=== PATIENT | female | born 1965 | race Caucasian/White ===

== ENCOUNTER 2016-09-25 22:10 | Inpatient (IN) ==
[2016-09-25 22:38] LABS: MANUAL DIFF NEEDED? NO
[2016-09-25 22:41] LABS: BASO% 0.3 % (0.0-0.8); EOS# 0.13 X1000 (0.0-0.7); EOS% 2.2 % (0.0-10.0); HEMATOCRIT 35.7 % (37.0-47.0); HEMOGLOBIN 11.3 g/dL (12.0-16.0); LYMPH# 1.14 X1000 (1.2-3.4); LYMPH% 19.1 % (20.5-51.1); MCHC 31.7 g/dL (33-37); MCV 101.1 FL (81-99); MPV 10.7 FL (7.4-10.4); NEUT% 68.4 % (42.2-75.2); PLT 113 X1000 (130-400); RBC 3.53 XMIL (4.2-5.4)
[2016-09-25 22:54] LABS: AGAP 11; ALBUMIN 3.1 g/dL (3.5-5.0); ALKALINE PHOSPHATASE 111 U/L (32-104); BUN 16 mg/dL (8-22); CALCIUM 7.8 mg/dL (8.8-10.2); CHLORIDE 107 mmol/L (98-107); COSMO 285; GOT 42 U/L (10-30); GPT 61 U/L (10-36); POTASSIUM 3.7 mmol/L (3.5-5.1); SODIUM 142 mmol/L (136-145); TCO2 24 mmol/L (25-35); TOTAL BILIRUBIN 0.33 mg/dL (0.20-1.00); TOTAL PROTEIN 5.4 g/dL (6.3-8.3)
--- NOTE | 2016-09-25 23:35 | ED EKG INTERP ---
This chart was entered by Shell Paredes Scribe, acting as scribe for Earnest Oviedo MD. EKG Interpretation - EKG Time of EKG reading by physician:: 22:28 EKG Read and Signed by:: Earnest Oviedo EKG Interpretation (*Must complete 3 of following elements*): Normal Rate: 55 Rhythm: Sinus Bradycardia Comments: Otherwise Normal ECG This chart was documented by the indicated scribe, (Shell Paredes Scribe) and accurately reflects the services I performed and decisions made by me, Earnest Oviedo MD, as attested by the provider's signature.
[2016-09-26 01:46] LABS: IRON SATURATION 12 %; TIBC 194 ug/dL; TOTAL IRON 24 ug/dL (49-151); UNBOUND IRON 170 ug/dL (112-346)
[2016-09-26] MEDS ORDERED: NS 1,000 ML IV ONE (02:04)
--- NOTE | 2016-09-26 03:02 | PROVIDER DOCUMENTATION ---
This chart was entered by Shell Paredes Scribe, acting as scribe for Earnest Oviedo MD. HPI-Syncope/Dizziness - General Chief Complaint: Syncope Stated Complaint: WEAKNESS Time Seen by Provider: 09/25/16 23:34 Source: patient Allergies/Adverse Reactions: Patient Allergies Allergy/AdvReac Type Severity Reaction Status Date / Time No Known Allergies Allergy Verified 09/25/16 22:44 Home Medications: Home Medication List Medication Instructions Recorded Confirmed Last Taken Type Multivitamin [Multi-Vitamin Daily] 1 each PO DAILY 11/09/12 09/25/16 09/25/16 09 :00 History Trazodone [Desyrel] 150 mg PO QHS 10/26/13 09/25/16 01/16/16 20:00 History Alprazolam [Xanax] 1 mg PO BID 04/27/14 09/25/16 01/17/16 08:00 History Escitalopram Oxalate [Lexapro] 20 mg PO DAILY 06/22/14 09/25/16 09/25/16 09:00 History Cyclobenzaprine [Flexeril] 10 mg PO DAILY 08/10/15 09/25/16 01/16/16 20:00 History Hydrocodone/Acetaminophen [[place] 1 each PO Q6H PRN PRN 08/10/15 09/25/16 08:00 History 10-325 Tablet] Montelukast Sodium [Singulair] 10 mg PO DAILY 08/10/15 09/25/16 09/25/16 09:00 History Vits A,C,E/Lutein/Minerals 1 each PO DAILY 08/10/15 09/25/16 09/25/16 09:00 History [Ocuvite with Lutein Tablet] Topiramate [Topamax] 100 mg PO DAILY 01/17/16 09/25/16 09/25/16 09:00 History - History of Present Illness-Syncope/Dizzy Nature of Presenting Problem: 50 Y/O F presents to ED with Syncope. Pt states that she fell 3times today off of laundry room table.pt states sitting on a table in laundry room attempting to get off and fell off. Pt states next door neighbor found her passed out on the laundry room. Pt c/o of leaning to the left. Denies N/V hx of stroke. Pt was given a 1L of fluid en route to ED. Prior Episodes: reports: no prior history Onset/Duration: reports: this evening Timing: reports: still present Position/Activity at time of episode: reports: standing Symptoms prior to episode: reports: none Context: reports: other (back pain and leaning to left) Current Symptoms: denies: sweaty, nausea, vomiting Recently Seen Here or By Another Healthcare Provider: No Review of Systems - Adult - REVIEW OF SYSTEMS - ADULT Constitutional: denies: chills, fever Eyes: reports: no symptoms reported Ears, Nose, Mouth & Throat: reports: no symptoms reported Cardiovascular: reports: no symptoms reported Respiratory: reports: no symptoms reported Gastrointestinal: denies: abdominal pain, diarrhea, nausea, vomiting Genitourinary: reports: no symptoms reported Musculoskeletal: reports: back pain. denies: joint pain, joint swelling Integumentary: reports: no symptoms reported Neurological: reports: loss of balance, syncope. denies: dizziness/vertigo, headache/migraines Psychiatric: reports: no symptoms reported Endocrine: reports: no symptoms reported Hematologic/Lymphatic: reports: no symptoms reported Allergic/Immunologic: reports: no symptoms reported All Other Systems: Reviewed and Negative Past History - Adult - PAST MEDICAL HISTORY-ADULT Review of Records: reports: Old Records Reviewed, Nursing Assessment Review, Medications Reviewed, Social history reviewed & non-contributory. 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/"I always have abn cardiac enzymes.") - PRIOR SURGERIES/PROCEDURES Surgical/Procedure History: reports: appendectomy, cholecystectomy, hysterectomy , , tonsillectomy, hernia repair, bowel surgery (gastric bypass), other (gastric bypass, mastectomy,toe nail removal, scar tissue removed) - IMMUNIZATION STATUS Childhood Immunizations: See Nurse Assessment Flu Vaccine: See Nurse Assessment - FAMILY HISTORY Family History: reviewed, not pertinent Physical Exam-General - CONSTITUTIONAL General Appearance: alert, no apparent distress - EYES Eyes: PERRL/EOMI, pink conjunctivae - HEAD, EARS, NOSE, MOUTH & THROAT HENMT: normal ENT inspection, TMs normal, pharynx normal - NECK Neck: full range of motion, supple, normal inspection - RESPIRATORY Respiratory: lungs clear, normal breath sounds - CARDIOVASCULAR Cardiovascular: regular rate, rhythm - GASTROINTESTINAL (ABDOMEN) Abdominal Exam: non tender, soft - LYMPHATIC Lymphatic: no adenopathy - MUSCULOSKELETAL Back Exam: normal inspection, other (bruising noted from fall) Extremity: normal range of motion - SKIN Integumentary: normal color - NEUROLOGIC Neurologic: no motor/sensory deficits, positive romberg's sign. negative: facial droop, focal weakness, sensory deficit - PSYCHIATRIC Psych/Mental Status: normal mood/affect, normal thought content, normal thought process, oriented x 3 Progress - PLAN OF CARE/RESULTS Progress/Plan/Lab Results: Vital Signs - 8 hr 09/25/16 22:19 09/25/16 23:00 09/26/16 00:00 Temperature 98.9 F Pulse Rate 60 54 L 59 L Respiratory Rate 18 13 13 Blood Pressure 108/73 109/75 110/75 O2 Sat by Pulse Oximetry 100 97 97 09/26/16 02:10 Temperature Pulse Rate 58 L Respiratory Rate 10 L Blood Pressure 103/71 O2 Sat by Pulse Oximetry 96 Laboratory Results - last 24 hr 09/25/16 09/25/16 09/25/16 22:30 22:30 22:38 WBC 5.98 RBC 3.53 L Hgb 11.3 L Hct 35.7 L MCV 101.1 H MCH 32.0 H MCHC 31.7 L RDW Std Deviation 13.0 Plt Count 113 L MPV 10.7 H Immature Gran % (Auto) 0.0 Neut % (Auto) 68.4 Lymph % (Auto) 19.1 L Clinch % (Auto) 10.0 H Eos % (Auto) 2.2 Baso % (Auto) 0.3 Immature Gran # (Auto) 0.00 Neut # (Auto) 4.09 Lymph # (Auto) 1.14 L Clinch # (Auto) 0.60 H Eos # (Auto) 0.13 Baso # (Auto) 0.02 Sodium 142 Potassium 3.7 Chloride 107 Carbon Dioxide 24 L Anion Gap 11 BUN 16 Creatinine 0.8 Estimated GFR/1.73 m2 > 60 BUN/Creatinine Ratio 20 Glucose 109 H POC Glucose 101 Calculated Osmolality 285 Calcium 7.8 L Iron TIBC % Saturation Unsat Iron Binding Total Bilirubin 0.33 AST 42 H ALT 61 H Alkaline Phosphatase 111 H Total Protein 5.4 L Albumin 3.1 L Globulin 2.3 Albumin/Globulin Ratio 1.3 Vitamin B12 09/25/16 09/25/16 23:35 23:35 WBC RBC Hgb Hct MCV MCH MCHC RDW Std Deviation Plt Count MPV Immature Gran % (Auto) Neut % (Auto) Lymph % (Auto) Clinch % (Auto) Eos % (Auto) Baso % (Auto) Immature Gran # (Auto) Neut # (Auto) Lymph # (Auto) Clinch # (Auto) Eos # (Auto) Baso # (Auto) Sodium Potassium Chloride Carbon Dioxide Anion Gap BUN Creatinine Estimated GFR/1.73 m2 BUN/Creatinine Ratio Glucose POC Glucose Calculated Osmolality Calcium Iron 24 L TIBC 194 % Saturation 12 Unsat Iron Binding 170 Total Bilirubin AST ALT Alkaline Phosphatase Total Protein Albumin Globulin Albumin/Globulin Ratio Vitamin B12 572 Orders Category Date Time Status HEAD W/O CONTRAST [CT] Stat Exams 09/26/16 00:54 Taken CBC WITH ELECTRONIC DIFF [HEME] Stat Lab 09/25/16 22:30 Completed CMP [COMPREHENSIVE METABOLIC PANEL] [CHEM] Stat Lab 09/25/16 22:30 Completed FOLATE Stat Lab 09/26/16 01:12 Received UIBC W TOTAL IRON [CHEM] Stat Lab 09/26/16 01:12 Completed VITAMIN B12 Stat Lab 09/26/16 01:12 Completed 0.9% Sodium Chloride Inj [Ns] 1,000 ml Med 09/26/16 02:04 Active IV 999 mls/hr EKG [EKG] Stat Ther 09/25/16 22:21 Ordered Result Diagrams: 09/25/16 22:30 09/25/16 22:30 - CT/MRI 1 CT Study: Head Impression: Normal CT Results: No acute hemorrhage or definite acute infract - CONSULTS/PCP/HOSPITALIST Notification #1 *Consult/PCP/Hospitalist*: Time Discussed: 02:47 Reason/Comments: Admit Consult Disposition: Admit (Admit Accepted) Departure - Departure Date of Disposition Decision: 09/26/16 Time of Disposition Decision: 02:49 DIAGNOSIS: CVA (cerebral vascular accident) Qualifiers: CVA mechanism: unspecified Qualified Code(s): I63.9 - Cerebral infarction, unspecified Disposition: ADMITTED INPATIENT 09 Certified Medical Emergency: Emergent Condition: Stable Additional Freetext Instructions: ED Follow Up Instructions: You have been treated by a care provider in the Emergency Department. These instructions are being provided to you so you can have an understanding of how to care for yourself upon discharge. Upon discharge from the Emergency Department, you are responsible for making arrangements for follow-up care by a physician of your choice. Take all prescribed medications as directed. Return to the Emergency Department immediately for any new or worsening symptoms. You may call the Physician Referral phone number at [phone] to obtain a list of Physicians who are taking new patients. Referrals and Follow-Ups: Neena Duenas CRNP [Primary Care Provider] - - Critical Care Note This patient required my direct & personal management of CC.: No This chart was documented by the indicated scribe, (Shell Paredes Scribe) and accurately reflects the services I performed and decisions made by me, Earnest Oviedo MD, as attested by the provider's signature.
--- NOTE | 2016-09-26 05:28 | EKG Report ---
Test Performed on : 09/25/2016 10:28:31 PM Test Reason : syncope Blood Pressure : / mmHG Vent. Rate : 055 BPM Atrial Rate : 055 BPM P-R Int : 126 ms QRS Dur : 074 ms QT Int : 410 ms P-R-T Axes : 064 048 069 degrees QTc Int : 392 ms Sinus bradycardia. Otherwise normal ECG When compared with ECG of 28-OCT-2013 06:51, premature ventricular complexes. are no longer present Unconfirmed Result
[2016-09-26] MEDS ORDERED: ZOFRAN IV PRN (05:42)
--- NOTE | 2016-09-26 05:48 | HISTORY AND PHYSICAL ---
CHIEF COMPLAINT: Fall, syncopal episode, subjective lean to the left. PRIMARY CARE PROVIDER: KERRY Hanson. HISTORY OF PRESENT ILLNESS: This is a 50-year-old female who was last admitted to our service on 10/26/2013 for the same complaint. She has a past medical history of hypertension, and has since been taken off of all of her antihypertensives, and was noted to be hypotensive to normotensive in the emergency room after fluid bolusing. She was also noted to be bradycardic. 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 However, she did state today that she only ate a banana and had water and 1 Mountain Dew. She was apparently at the laundromat, sitting on the laundromat table, and attempted to get off, stated that she could not, and then woke up on the floor after having loss of consciousness. She did hit the back of her head. A CT scan of the brain was obtained in the emergency room. Noted mild atrophy. No definite infarct. I note a small collection fat. She has a known lipoma. The patient also has chronic back pain and is on multiple medications that could cause sedation, such as trazodone, [place], Flexeril, and Xanax, which will be held for the night. She is also on Lexapro and Topamax. She will be admitted in observation status to the floor for further evaluation and treatment. REVIEW OF SYSTEMS: Fourteen point review of systems conducted with the patient. Pertinent positives listed above in the HPI. All other systems reviewed and found to be negative. PAST MEDICAL HISTORY: 1. Hypertension, now hypotensive to normotensive. 2. Spondylolisthesis. 3. 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 4. Elevated cardiac enzymes in 2011, and underwent a cardiac catheterization that was normal at [facility]. PREVIOUS SURGICAL HISTORY: 1. Tonsillectomy. 2. Cholecystectomy. 3. Appendectomy. 4. Hernia repair. 5. Hysterectomy. 6. Gastric bypass and scar tissue removal of the abdomen. 7. Bladder stent. FAMILY HISTORY: Patient is adopted, does not know her family. SOCIAL HISTORY: Lives alone. Denies tobacco, alcohol, or illicit drug use or abuse. HOME MEDICATIONS: 1. Multivitamin 1 p.o. daily. 2. Trazodone 50 mg p.o. at bedtime. 3. Xanax 1 mg p.o. b.i.d. 4. Lexapro 20 mg p.o. daily. 5. Singular 10 mg p.o. daily. 6. Flexeril 10 mg p.o. daily. 7. [place] 10 one p.o. q.6 p.r.n. 8. Ocuvite with lutein tablet 1 p.o. daily. 9. Topamax 100 mg p.o. daily. PHYSICAL EXAMINATION: VITAL SIGNS: Temperature 98.9 degrees, pulse 58, respirations 10, blood pressure will 103/71, oxygen saturation 96%. On the ambulance charting, she was noted to have a blood pressure of 89/63. GENERAL: A very frail 50-year-old female, lying in the ER stretcher. She is awake, alert, oriented. Answers all questions appropriately, in no acute distress. HEENT: Head is atraumatic, normocephalic. Pupils equal, round, reactive to light. Extraocular eye movement intact. Sclerae is anicteric. Conjunctivae is pink. Oral mucosa is moist. Poor dentition is noted. NECK: Supple. Trachea is midline. No JVD. CARDIAC: S1-S2 appreciated. Regular rhythm. Sinus bradycardia. No murmurs, gallops, rubs. LUNGS: Clear to auscultation bilaterally. No rhonchi, wheezes, or rales. Symmetrical rise and fall with respirations. ABDOMEN: Soft, nondistended, nontender. Bowel sounds present in all 4 quadrants. Normoactive. No pulsatile mass. No organomegaly. EXTREMITIES: No clubbing, cyanosis, or edema. 1+ pedal pulses. NEUROLOGICAL: Alert and oriented x3. Cranial nerves 2-12 grossly intact. No focal or motor deficits noted. No palmar drift. No facial asymmetry. GENITOURINARY: Patient voids, otherwise deferred. DIAGNOSTIC DATA: CT of the head: No acute intracranial process. LABORATORY DATA: WBC 5.98, hemoglobin 11.3, hematocrit 58.7, platelet count 113,000. Sodium 124, potassium 3.4, chloride 107, carbon dioxide 24, BUN 16, creatinine 0.8, glucose 109. ASSESSMENT AND PLAN: 1. Syncope. This appears to be possibly multifactorial. The patient was hypotensive. She stated she had only ate a banana today. She has had very minimal fluid intake. She was bradycardic. She is on multiple medications that could cause sedation, especially without food. Will order an MRI in a.m. to rule out cerebrovascular accident. Orthostatic vital signs are pending. Normal saline bolus was given in the emergency room. We will continue normal saline. Also, a urine drug screen has not been obtained. We will also get a urinalysis, as urinary tract infections can cause altered mentation. 2. Hypotension. As noted above, fluid bolusing was given. Will continue. Will hold pain medications and benzodiazepines, as well as her Flexeril. 3. Sinus bradycardia. Telemetry has been ordered. We will monitor. 4. Elevated liver function tests. A CT scan of her abdomen was obtained earlier this year, which showed stable intrahepatic and extrahepatic biliary dilation, status post cholecystectomy. This is possibly the cause of her elevated liver function tests. 5. Anemia. We will check iron studies. 6. Further recommendations per patient clinical course. Dictated by KERRY Menendez for Marcelino Todd MD cc: KERRY Menendez MD Anna M. Dumas, CRNP
[2016-09-26] MEDS: NS 1,000 ML IV SCH ×3 (06:11→23:53)
[2016-09-26 06:32] LABS: URINE MICRO REVIEW NEEDED? NO; URINE SOURCE CLEAN CATCH
[2016-09-26 06:39] LABS: BILIRUBIN URINE NEGATIVE (NEGATIVE); BLOOD URINE NEGATIVE (NEGATIVE); COLOR YELLOW; GLUCOSE URINE NEGATIVE (NEGATIVE); LEUKOCYTES URINE SMALL (NEGATIVE); NITRITE URINE NEGATIVE (NEGATIVE); PROTEIN URINE TRACE mg/dL (NEGATIVE); SP GRAVITY URINE 1.023; TURBIDITY URINE CLEAR (CLEAR); UROBILINOGEN URINE 2 mg/dL (NORMAL)
[2016-09-26 06:41] LABS: UR EPITHELIAL CELLS <10 /HPF (<10); URINE BACTERIA NEGATIVE /HPF; URINE CULTURE NEEDED? YES; URINE RBC <10 /HPF (<10)
[2016-09-26 07:01] LABS: UR AMPHETAMINES QUAL PRESUMPTIVE POSITIVE (NONE DETECT); UR BARBITUATES QUAL NONE DETECTED (NONE DETECT); UR BENZODIAZEPIN QUAL PRESUMPTIVE POSITIVE (NONE DETECT); UR CANNABINOIDS QUAL NONE DETECTED (NONE DETECT); UR COCAINE QUAL NONE DETECTED (NONE DETECT); UR METHADONE QUAL NONE DETECTED (NONE DETECT); UR OPIATES QUAL NONE DETECTED (NONE DETECT); UR OXYCODONE QUAL PRESUMPTIVE POSITIVE (NONE DETECT); UR PCP QUAL NONE DETECTED (NONE DETECT)
--- NOTE | 2016-09-26 07:57 | Diag Imaging Result Doc PS360 ---
EXAM: HEAD W/O CONTRAST - 09/26/2016 HISTORY: cva? TECHNIQUE: Dose reduction protocol COMPARISON: 07/15/2010 FINDINGS: There are mild atrophic changes. There is no evidence of intracranial hemorrhage, mass effect, midline shift, or hydrocephalus. There is no evidence of infarct, although acute infarcts may not be immediately visible. There is no skull fracture. There is a small fat density structure superior to the third ventricle which is stable and is of questionable clinical significance. IMPRESSION: No visible acute intracranial abnormality. The construction driver radiologist provided primary results at 1:43 AM on 09/26/2016. Electronically signed by Collins Martinez 09/26/2016 7:55 AM
--- NOTE | 2016-09-26 10:49 | Diag Imaging Result Doc PS360 ---
EXAM: HIP W/PELVIS BILAT 2 VIEWS HISTORY: hip pain with fall TECHNIQUE: Three views COMPARISON: None. FINDINGS: Neither hip is dislocated. No fracture to either hip. The pubic symphysis is not widened. No fracture to the pelvis. IMPRESSION: No acute bony injury. Electronically signed by Erik Priest 09/26/2016 10:47 AM
--- NOTE | 2016-09-26 11:07 | PROGRESS NOTE ---
DATE: 09/26/2016 SUBJECTIVE: The patient is complaining of having hip pain. She is complaining of having pain all over. She was admitted for falling at home. The patient was seen and examined. PHYSICAL EXAMINATION: Vital Signs: Blood pressure 86/55, pulse of 62, respirations 14, temperature of 98.4 degrees, pulse of 68. General Appearance: Thin, white female in moderate distress. HEENT: Anicteric sclerae. Clear conjunctivae. Neck: Supple. No JVD. No bruit. Cardiovascular: S1 and S2. Normal rate and rhythm. No murmur, rubs, or gallops. Pulmonary: Clear to auscultation bilaterally. GI: Soft, nontender, nondistended. Normoactive bowel sounds. Musculoskeletal: No clubbing, cyanosis, or edema. LABORATORY: White count 5.98, hemoglobin 11.3, hematocrit 35.7, platelets of 113,000. Chemistry: Sodium 142, potassium 3.7, chloride 107, bicarb 24, BUN 16, creatinine 0.8, glucose of 109. ASSESSMENT AND PLAN: A 50-year-old admitted to the hospital for syncope. 1. Syncope and passed out. CAT scan was negative for any acute process. MRI is pending. We will get a Doppler of the carotid arteries. We will get an echocardiogram. Her blood pressures have been running low. We will start the patient on intravenous fluid. We will get the x-ray of her hip. We will back off on her muscle relaxant. 2. Deep vein thrombosis prophylaxis. Put the patient on Lovenox.
[2016-09-26] MEDS: THERA M PLUS PO SCH (11:47)
[2016-09-26] MEDS: OCUVITE LUTEIN & ZEAXANTHIN PO SCH (11:47)
[2016-09-26] MEDS: LEXAPRO PO SCH (11:48)
[2016-09-26] MEDS: TOPAMAX PO SCH (11:48)
[2016-09-26] MEDS: SINGULAIR PO SCH (11:48)
[2016-09-26] MEDS ORDERED: DILAUDID IV PRN (11:55)
[2016-09-26] MEDS: NORCO-10 PO PRN ×2 (12:02→17:37)
--- NOTE | 2016-09-26 12:26 | Diag Imaging Result Doc PS360 ---
EXAM: MRI BRAIN W W/O CONTRAST - 09/26/2016 HISTORY: syncope TECHNIQUE: Images are obtained prior to and following Omniscan administration. COMPARISON: CT head from earlier the same day (09/26/2016) FINDINGS: There are mild atrophic changes, primarily at the frontal lobes. There is no evidence of hemorrhage, mass effect, midline shift, or hydrocephalus. There are no substantial signal abnormalities identified. The diffusion weighted images show no areas of restricted diffusion (no evidence of acute infarct). There is no abnormal enhancement identified. IMPRESSION: No visible acute intracranial abnormality. No evidence of infarct. Electronically signed by Collins Martinez 09/26/2016 12:24 PM
[2016-09-27] MEDS: NS 1,000 ML IV SCH (02:10)
[2016-09-27 06:29] LABS: MANUAL DIFF NEEDED? NO
[2016-09-27 07:00] LABS: AGAP 11; BUN 10 mg/dL (8-22); CHLORIDE 111 mmol/L (98-107); COSMO 281; MAGNESIUM 1.8 mg/dL (1.5-2.7); POTASSIUM 3.9 mmol/L (3.5-5.1); SODIUM 142 mmol/L (136-145); TCO2 20 mmol/L (25-35)
[2016-09-27 07:04] LABS: BASO% 0.4 % (0.0-0.8); EOS# 0.08 X1000 (0.0-0.7); EOS% 1.7 % (0.0-10.0); HEMATOCRIT 34.7 % (37.0-47.0); HEMOGLOBIN 11.2 g/dL (12.0-16.0); LYMPH# 1.15 X1000 (1.2-3.4); LYMPH% 24.6 % (20.5-51.1); MCH 31.6 PG (27-31); MCHC 32.3 g/dL (33-37); MONO# 0.42 X1000 (0.11-0.59); MPV 10.8 FL (7.4-10.4); NEUT% 64.3 % (42.2-75.2); PLT 118 X1000 (130-400); RBC 3.54 XMIL (4.2-5.4)
[2016-09-27 08:07] VITALS: BP 130/83
[2016-09-27] MEDS: LEXAPRO PO SCH (09:48)
[2016-09-27] MEDS: SINGULAIR PO SCH (09:49)
[2016-09-27] MEDS: NORCO-10 PO PRN (09:51)
[2016-09-27] MEDS: TOPAMAX PO SCH (09:51)
[2016-09-27] MEDS: OCUVITE LUTEIN & ZEAXANTHIN PO SCH (09:51)
[2016-09-27] MEDS: THERA M PLUS PO SCH (09:51)
--- NOTE | 2016-09-27 11:21 | ECHO REPORT ---
ORDER DATE: 09/26/2016 INTERPRETING PHYSICIAN: Dr. Morris Diallo. ECHOCARDIOGRAPHIC MEASUREMENTS: 1. Interventricular septum 1.2 cm. 2. Left ventricular posterior wall 1.0 cm. 3. Diastolic diameter 4 cm. 4. Aorta 3.3 cm. 5. Left atrium 2.8 SUMMARY OF THE 2-DIMENSIONAL IMAGIN. The aortic valve leaflets are trileaflet. Mitral valve was normal. Tricuspid valve was normal. Pulmonic valve was normal. 2. Normal left ventricular cavity size. Estimated ejection fraction of 65%-70%. There is mild mitral regurgitation. Mild tricuspid regurgitation. Peak velocity across the tricuspid valve was 2.7 m/sec. Pulmonary systolic pressure of 39 mmHg. 3. Peak velocity across the aortic valve less than 2 m/sec by Doppler studies. There is no aortic stenosis or regurgitation. 4. There is no pericardial effusion or obvious intracardiac mass or thrombus. cc: Morris Diallo MD
--- NOTE | 2016-09-27 11:31 | PROGRESS NOTE ---
DATE: 09/27/2016 SUBJECTIVE: The patient is feeling well. She wants to go home. As for a Cardiology consult, she has refused. She wants to see her primary care doctor and see Cardiology as an outpatient. OBJECTIVE: Vital signs: Blood pressure 130/83, pulse of 52, respirations 16, temperature 98 degrees, sat of 99% on room air. General Appearance: Thin, white female in no acute distress. HEENT: Anicteric. Clear conjunctivae. Neck: Supple. No JVD. No bruits. Cardiovascular: S1, S2 normal. Normal rhythm. Slightly bradycardic. Pulmonary: Clear to auscultation bilaterally. GI: Soft, nontender, nondistended. Normoactive bowel sounds. Musculoskeletal: No clubbing, cyanosis, or edema. LABORATORY: Today, white count 4.67, hemoglobin 11.2, hematocrit of 34.7, platelets of 118,000. Chemistry: Sodium 142, potassium of 3.9, chloride 111, bicarb 20, BUN 10, creatinine 0.6, glucose of 83. ASSESSMENT AND PLAN: This is a 50-year-old admitted to the hospital for syncope. 1. Syncope: Grossly abnormal on her study with heart rates in the 50s. Blood pressure has been well controlled. 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 2. The patient's study have been normal. MRI and MRA is normal. Echocardiogram is still pending, but the patient is adamant about going home. We will discharge the patient home. Have her follow up with her PCP for the echocardiogram.
--- NOTE | 2016-09-27 12:41 | DISCHARGE SUMMARY ---
ADMISSION DATE: 09/26/2016 DISCHARGE DATE: 09/27/2016 CONSULTATIONS: Patient refused cardiology consult. PERTINENT PROCEDURE: 1. Head CT showed no visible acute intracranial abnormality. 2. Brain MRI showed no acute intracranial abnormality. No evidence of infarct. 3. Hip pelvis x-ray showed no acute bony injury. DISCHARGE DIAGNOSES: 1. Syncope appears to be multifactorial. Patient was hypotensive as well as only eating a banana on the day of her syncope. She was also found to be bradycardic. She is on multiple medications for sedation especially without food that could cause her symptoms. The patient underwent a head CT, as well as an MRI that did not show anything acute. Her hip and pelvis x- ray were negative. The patient has refused a cardiology consult. Her echocardiogram is still pending. She was started on IV fluids and a deescalation of her muscle relaxers. 2. Hypotension. On admission, improved. 3. Elevated liver enzymes. CT of her abdomen was obtained earlier this year which showed intrahepatic and extrahepatic biliary dilatation status post cholecystectomy. Stable. 4. Anemia stable. HOSPITAL COURSE: Ms. Brown is a 50-year-old female, last admitted to our service on 10/26/2013 for the same complaint of a fall with syncope. She carries a past medical history of hypertension, has been taken off all her antihypertensives and noted to be hypotensive to normotensive in the ED. After fluid bolusing she was also noted to be bradycardic. 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 However, she states that she had only had a banana, water and Mountain Dew on the day of her admission. She was apparently at the laundromat, sitting on a laundromat table and attempted to get off, stated that she could not and she woke up on the floor having loss of consciousness. She did hit the back of her head. A CT of the brain was obtained in the ED. It showed mild atrophy no definite infarct. She also has chronic back pain and is on multiple medications that could cause sedation such as trazodone, Drummond and Flexeril and Xanax. Those were initially held. She was also on Topamax and Lexapro. She was held in observation status for further evaluation and treatment. The patient has refused to be looked at by cardiology. She did have a normal brain MRI. She was still noted to be somewhat hypertensive again. Her muscle relaxers were deescalated and held. Her hip and pelvis x-ray were negative. Echocardiogram is still pending. Her hypotension has improved. The patient is being discharged home by Dr. Levin today at her request. Temperature is 98 degrees, heart rate 52, respirations 16 , blood pressure is 130/83, O2 is 99% on room air. DISCHARGE MEDICATIONS: 1. As per Dr. Levin. Xanax 1 mg p.o. b.i.d. 2. Lexapro 20 mg p.o. daily. 3. Drummond 10/325, 1 each p.o. q.6 hours p.r.n. 4. Singulair 10 mg p.o. daily. 5. Multivitamin daily 1 each p.o. daily. 6. Topamax 100 mg p.o. daily. 7. Ocuvite with lutein tablet 1 each p.o. daily. FOLLOW-UP: Patient is being discharged home with self care. She has been educated to stay hydrated and follow up with her primary care physician, KERRY Fields in 7- 10 days. Patient can return to the ED for any worsening of symptoms. DISCHARGE TIME: 30 minutes. Dictated by KERRY Singh for Simon Al Levin MD Addendum: I personally evaluated and examined the patient in conjunction to the [facility] and agreed with her disposition [facility]
--- NOTE | 2016-09-27 16:07 | Carotid Study ---
DATE: 09/26/2016 PROCEDURE: Carotid duplex imaging. REFERRING PHYSICIAN: Dr. Levin INTERPRETING PHYSICIAN: Dr. Alonso TECH: Roberto INDICATIONS: Syncope. OBSERVED DATA RIGHT LEFT Brachial Blood Pressure Carotid Pulse Bruits: Carotid/Sub DIAGRAM OF ULTRASOUND IMAGING R L RIGHT INT EXT INT EXT LEFT Pineda (cm/s) Pineda (cm/s) Subclavian 122/0 Subclavian 75/1 CCA Proximal 43/12 CCA Proximal 45/12 CCA Distal 39/15 CCA Distal 45/15 Bulb 45/16 Bulb 39/9 ICA Proximal 40/15 ICA Proximal 38/14 ICA Mid 63/25 ICA Mid 67/27 ICA Distal 94/35 ICA Distal 76/23 ECA 41/12 ECA 43/11 Vertebral 40/16 Vertebral 52/23 ICA/CCA Ratio 2.2 ICA/CCA Ratio 1.7 % Stenosis 0 to 39 % Stenosis 0 to 39 FINDINGS: There is a small calcific plaque in the right carotid bulb and proximal left internal carotid artery. There are not ulcerated. There are no hemodynamically significant stenoses. There is antegrade vertebral flow bilaterally. PHYSICIAN INTERPRETATION: Mild plaque disease bilaterally as described above. cc: Roberto Alonso MD
== END 2016-09-27 11:52 | disposition home or self-care (01) ==
LOC: ED 22:10 → 3N 22:10 → SUATTDRO 09-26 04:22 → OBSVTOIN 09-26 04:22
PROVIDERS: ATTEND Internal Medicine